=== PATIENT | female | born 1955 | race Caucasian/White ===

== ENCOUNTER 2016-04-27 11:55 | Inpatient (IN) | payer OTHER ==
[2016-04-27 15:09] VITALS: BMI 22.2
[2016-04-27] MEDS ORDERED: NICOTINE POLACRILEX 4 MG GUM BC PRN (16:24)
[2016-04-27] MEDS ORDERED: MAGNESIUM CITRATE 300 ML BOTTLE PO PRN (16:24)
[2016-04-27] MEDS ORDERED: P-EPHED 60MG/TRIPROLIDI 2.5MG TABLET PO PRN (16:24)
[2016-04-27] MEDS ORDERED: ACETAMINOPHEN 325 MG TABLET (FP) PO PRN (16:24)
[2016-04-27] MEDS ORDERED: IBUPROFEN 400 MG TABLET (FP) PO PRN (16:24)
[2016-04-27] MEDS ORDERED: guaiFENesin/D-METHORPHAN HB 10 ML UNIT-DOSE CUPS PO PRN (16:24)
[2016-04-27] MEDS ORDERED: MAGNESIUM HYDROX 2400MG/30ML ORAL SUSPENSION 30 ML CUP PO PRN (16:24)
[2016-04-27] MEDS ORDERED: MENTHOL/PHENOL 1 EACH UD MM PRN (16:24)
[2016-04-27] MEDS ORDERED: MAG HYDROX/AL HYDROX/SIMETH 30 ML UNIT-DOSE CUP PO PRN (16:24)
[2016-04-27] MEDS ORDERED: chlordiazePOXIDE HCL 25 MG CAPSULE PO PRN (16:24)
[2016-04-27] MEDS ORDERED: ALBUTEROL SO4 6.7 GM HFA INHALER IH PRN (16:27)
[2016-04-27] MEDS ORDERED: ALBUTEROL SO4 2.5/IPRATROPIUM 0.5 INH SOL 3 ML VIAL.NEB. NEB PRN (16:27)
--- NOTE | 2016-04-27 16:34 | HP ---
CIWA Score - CIWA Score Nausea/Vomitin-No Nausea/No Vomiting Muscle Tremors: 4-Moderate,w/Arms Extend Anxiety: 4-Mod. Anxious/Guarded Agitation: 4-Moderately Restless Paroxysmal Sweats: 2 Orientation: 2-Disoriented Date<2 days Tacttile Disturbances: 0-None Auditory Disturbances: 0-None Visual Disturbances: 0-None Headache: 0-None Present CIWA-Ar Total Score: 16 Admission ROS BHS - HPI Chief Complaint: withdrawal sx HISTORY OF SEIZURE FROM ALCOHOL WITHDRAWAL Allergies/Adverse Reactions: Allergies Allergy/AdvReac Type Severity Reaction Status Date / Time No Known Allergies Allergy Verified 04/27/16 16:09 History of Present Illness: 60 years old female with long history of asthma hypertension weight loss and bipolar ii IS ADMITTED TO DETOX Exam Limitations: No Limitations - Ebola screening Have you traveled outside of the country in the last 21 days: No Have you had contact with anyone from an Ebola affected area: No Have you been sick,other than usual withdrawal symptoms: No Do you have a fever: No - Review of Systems Constitutional: Chills, Loss of Appetite, Changes in sleep, Unintentional Wgt. Loss, Unexplained wgt Loss EENT: reports: Dental Problems (DENTURE UPPER LOWER MISSING), Other (EYE GLASSES) Respiratory: reports: No Symptoms reported Cardiac: reports: No Symptoms Reported GI: reports: Poor Appetite, Poor Fluid Intake, Abdominal cramping : reports: No Symptoms Reported Musculoskeletal: reports: Back Pain Integumentary: reports: No Symptoms Reported Neuro: reports: Seizure (2016), Tremors Endocrine: reports: No Symptoms Reported Hematology: reports: No Symptoms Reported Psychiatric: reports: Judgement Intact, Anxious, Depressed Other Systems: Reviewed and Negative Patient History - Patient Medical History Hx Anemia: No Hx Asthma: Yes Hx Chronic Obstructive Pulmonary Disease (COPD): Yes Hx Cancer: No Hx Cardiac Disorders: No Hx Congestive Heart Failure: No Hx Hypertension: Yes Hx Hypercholesterolemia: No Hx Pacemaker: No HX Cerebrovascular Accident: No Hx Seizures: Yes (ALCOHOL RELATED) Hx Dementia: No Hx Diabetes: No Hx Gastrointestinal Disorders: No Hx Liver Disease: No Hx Genitourinary Disorders: No Hx Sexually Transmitted Disorders: No Hx Renal Disease (ESRD): No Hx Thyroid Disease: No Hx Human Immunodeficiency Virus (HIV): No Hx Hepatitis C: Yes Hx Depression: No Hx Suicide Attempt: No Hx Bipolar Disorder: Yes Hx Schizophrenia: No - Patient Surgical History Past Surgical History: Yes Other Surgical History: VASCULAR-CEREBRAL ANEURYSM Anesthesia Reaction: No - PPD History Previous Implant?: Yes Documented Results: Negative w/o proof Implanted On Prior R Admission?: No PPD to be Administered?: Yes - Reproductive History Patient is a Female of Child Bearing Age (11 -55 yrs old): No Patient : No - Smoking Cessation Smoking history: Current every day smoker Have you smoked in the past 12 months: Yes Aproximately how many cigarettes per day: 20 Cigars Per Day: 0 Hx Chewing Tobacco Use: No Initiated information on smoking cessation: Yes 'Breaking Loose' booklet given: 04/27/16 - Substance & Tx. History Hx Alcohol Use: Yes Hx Substance Use: No Substance Use Type: Alcohol Hx Substance Use Treatment: Yes Family Disease History - Family Disease History Family Disease History: CA: Mother, Other: Father (TB ) Admission Physical Exam BHS - Vital Signs Vital Signs: Vital Signs - 24 hr 04/27/16 15:07 Temperature 97.5 F L Pulse Rate 101 H Respiratory 20 Rate Blood Pressure 110/81 - Physical General Appearance: Yes: Appropriately Dressed, Alcohol on Breath, Thin, Tremorous, Irritable, Sweating, Anxious HEENTM: Yes: Hearing grossly Normal, Normal ENT Inspection, Normocephalic, Normal Voice Respiratory: Yes: Chest Non-Tender, No Respiratory Distress, No Accessory Muscle Use, Rhonchi, Wheezing, Expiration, Hyperresonant, Inspiration Neck: Yes: Supple, Trachea in good position Breast: Yes: Breasts Symetrical Cardiology: Yes: Regular Rhythm, S1, S2, Tachycardia Abdominal: Yes: Non Tender, Soft Genitourinary: Yes: Within Normal Limits Back: Yes: Normal Inspection Musculoskeletal: Yes: full range of Motion (FREE FROM GRAVITY), Gait Steady ( CANE), Back pain Extremities: Yes: Normal Range of Motion, Non-Tender, Tremors Neurological: Yes: Alert, Normal Response, Depressed Affect Integumentary: Yes: Warm Lymphatic: Yes: Within Normal Limits - Diagnostic (1) Alcohol dependence with withdrawal delirium Current Visit: Yes Status: Acute (2) Asthma Current Visit: Yes Status: Acute Qualifiers: Asthma severity: mild intermittent Asthma complication type: with status asthmaticus Qualified Code(s): J45.22 - Mild intermittent asthma with status asthmaticus (3) COPD (chronic obstructive pulmonary disease) Current Visit: Yes Status: Acute Qualifiers: COPD type: emphysema (4) Chronic bronchitis Current Visit: Yes Status: Acute Qualifiers: Chronic bronchitis type: mixed simple and mucopurulent Qualified Code(s): J41.8 - Mixed simple and mucopurulent chronic bronchitis (5) Hepatitis C antibody test positive Current Visit: Yes Status: Chronic (6) Hypertension Current Visit: Yes Status: Acute Qualifiers: Hypertension type: essential hypertension Qualified Code(s): I10 - Essential (primary) hypertension (7) Weight loss Current Visit: Yes Status: Acute (8) Use of cane as ambulatory aid Current Visit: Yes Status: Acute (9) Nicotine dependence Current Visit: Yes Status: Acute Qualifiers: Nicotine product type: cigarettes Substance use status: in withdrawal Qualified Code(s): F17.213 - Nicotine dependence, cigarettes, with withdrawal (10) S/P cerebral aneurysm repair Current Visit: Yes Status: Resolved (11) Bipolar II disorder Current Visit: Yes Status: Suspected Cleared for Admission BHS - Detox or Rehab S Level of Care: Medically Managed Detox Regimen/Protocol: Librium BHS Breath Alcohol Content Breath Alcohol Content: 0.017 Vital Signs - Vital Signs Vital Signs Refused: No Temperature: 97.5 F Temperature Source: Oral Pulse Rate: 101 Respiratory Rate: 20 Blood Pressure: 110/81 BP Location: Left Arm Blood Pressure Position: Sitting - Height Height: 5 ft 6 in - Weight Weight: 138 lb Weight Measurement Method: Standing Scale Body Mass Index (BMI): 22.2 - Bowel Function Bowel Movement: Yes Urine Pregancy Test - Result Urine Test Results: Negative- NO Line Present Urine Drug Screen - Control Is Test Valid: Yes - Results Drug Screen Negative: Yes
[2016-04-27 20:19] LABS: URINE APPEARANCE CLOUDY; URINE BILIRUBIN NEGATIVE (NEGATIVE); URINE BLOOD NEGATIVE (NEGATIVE); URINE COLOR YELLOW; URINE GLUCOSE (UA) NEGATIVE (NEGATIVE); URINE KETONE NEGATIVE (NEGATIVE); URINE NITRITE NEGATIVE (NEGATIVE); URINE PROTEIN NEGATIVE (NEGATIVE); URINE UROBILINOGEN NEGATIVE E.U./dl (0.2-1.0)
[2016-04-27 20:25] LABS: URINE LEUK ESTERASE 3+ (NEGATIVE)
[2016-04-27 20:39] LABS: URINE HYALINE CAST 5 /lpf; URINE RBC 17 /hpf (0-3); URINE WBC 60 /hpf (3-5)
[2016-04-27] MEDS: diphenhydrAMINE HCL 50 MG CAPSULE PO PRN (22:39)
[2016-04-27] MEDS: THIAMINE HCL 100 MG TABLET (FP) PO SCH (22:39)
[2016-04-27] MEDS: cloNIDine HCL 0.1 MG TABLET PO PRN (22:39)
[2016-04-27] MEDS: chlordiazePOXIDE HCL 25 MG CAPSULE PO SCH (22:39)
[2016-04-28] MEDS: chlordiazePOXIDE HCL 25 MG CAPSULE PO SCH (06:17)
[2016-04-28] MEDS: cloNIDine HCL 0.1 MG TABLET PO PRN (06:32)
--- NOTE | 2016-04-28 09:30 | PN ---
S CIWA - CIWA Score Nausea/Vomitin-No Nausea/No Vomiting Muscle Tremors: 4-Moderate,w/Arms Extend Anxiety: 3 Agitation: 4-Moderately Restless Paroxysmal Sweats: 3 Orientation: 0-Oriented Tacttile Disturbances: 0-None Auditory Disturbances: 0-None Visual Disturbances: 0-None Headache: 1-Very Mild CIWA-Ar Total Score: 15 BHS Progress Note (SOAP) Subjective: i would like to have my detox regimen switched to valium sweats shakes interrupted sleep anxiety agitation body aches Objective: 04/28/16 09:37 Vital Signs Temperature 96.1 F L 04/28/16 06:00 Pulse Rate 82 04/28/16 06:00 Respiratory Rate 18 04/28/16 06:00 Blood Pressure 144/71 04/28/16 06:00 O2 Sat by Pulse Oximetry (%) Laboratory Tests 04/27/16 20:01 Urine Color Yellow Urine Appearance Cloudy Urine pH 5.0 Ur Specific [place] 1.009 Urine Protein Negative Urine Glucose (UA) Negative Urine Ketones Negative Urine Blood Negative Urine Nitrite Negative Urine Bilirubin Negative Urine Urobilinogen Negative Ur Leukocyte Esterase 3+ H Urine RBC 17 Urine WBC 60 Ur Epithelial Cells Moderate Hyaline Casts 5 labs pending awake/alert ambulating no acute distress Assessment: 04/28/16 09:37 withdrawal sx Plan: continue detox increase fluids librium switched to valium as per pt request labs pending
[2016-04-28] MEDS ORDERED: BUPRENORPHINE/NALOXONE 8 MG/2 MG FILM PACKET SL SCH (10:00)
[2016-04-28] MEDS: PRENATAL VITAMINS W/ FOLIC ACID TABLET (FP) PO SCH (10:19)
[2016-04-28] MEDS: cloNIDine HCL 0.1 MG TABLET PO SCH ×2 (10:21→22:39)
[2016-04-28] MEDS: diazePAM 5 MG TABLET PO PRN ×2 (10:23→15:10)
[2016-04-28 10:24] LABS: MCH 32.8 pg (25.7-33.7); MCHC 34.1 g/dl (32.0-36.0); MEAN CELL VOLUME 96.3 fl (80-96); MEAN PLT VOLUME 8.4 fl (7.5-11.1); PLATELET COUNT 337 K/MM3 (134-434); RDW 13.1 % (11.6-15.6); WHITE BLOOD COUNT 5.5 K/mm3 (4.0-10.0)
[2016-04-28] MEDS: NICOTINE 21 MG/24 HOURS TOPICAL PATCH TD SCH (10:24)
[2016-04-28 10:31] LABS: ALBUMIN 3.7 g/dl (3.4-5.0); CALCIUM 9.7 mg/dL (8.5-10.1)
[2016-04-28 10:33] LABS: BILIRUBIN,TOTAL 0.3 mg/dL (0.2-1.0); CREATININE 1.1 mg/dL (0.55-1.02); TOT PROT 7.5 g/dl (6.4-8.2)
[2016-04-28] MEDS ORDERED: BUPRENORPHINE/NALOXONE 8 MG/2 MG FILM PACKET SL ONE (10:40)
[2016-04-28] MEDS: GABAPENTIN 300 MG CAPSULE (FP) PO SCH ×2 (13:03→22:40)
[2016-04-28] MEDS: diazePAM 5 MG TABLET PO SCH ×2 (13:03→22:40)
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
[2016-04-28 14:54] LABS: HIV 1 & 2 AB NEGATIVE; HIV 1 AGp24 NEGATIVE
[2016-04-28] MEDS: hydrOXYzine PAMOATE 50 MG CAPSULE (FP) PO PRN ×2 (17:36→21:43)
--- NOTE | 2016-04-28 17:36 | PN ---
[facility] Progress Note Note: Psychiatry Attending's note : Asked to meet with patient (second encounter). Reason : change of mind.Now wants medications. As listed in Psychiatric History section.See details. Patient seen.She wants to resume : depakote ER 500 mg po hs buspar 5 mg po bid gabapentin 600 mg po tid Side effects/benefits discussed with the patient. Ms oTscano agrees with this careplan. No scripts needed at discharge. Patient states that she has adequate supply at home.
[2016-04-28] MEDS: HYDROCORTISONE 1% TOPICAL CREAM 30 GM TUBE TP PRN ×2 (17:37→22:43)
[2016-04-28] MEDS: busPIRone HCL 5 MG TABLET PO SCH (22:39)
[2016-04-28] MEDS: DIVALPROEX NA *ER* EXTEND REL 500 MG TABLET.SA (FP) PO SCH (22:39)
[2016-04-28] MEDS: diphenhydrAMINE HCL 50 MG CAPSULE PO PRN (22:39)
[2016-04-28] MEDS: THIAMINE HCL 100 MG TABLET (FP) PO SCH (22:40)
[2016-04-28] MEDS ORDERED: chlordiazePOXIDE HCL 25 MG CAPSULE PO SCH (23:00)
[2016-04-29] MEDS: diazePAM 5 MG TABLET PO PRN ×2 (00:32→17:41)
[2016-04-29] MEDS: GABAPENTIN 300 MG CAPSULE (FP) PO SCH ×3 (06:05→23:09)
[2016-04-29] MEDS ORDERED: IBUPROFEN 600 MG TABLET (FP) PO PRN (11:08)
[2016-04-29] MEDS: PRENATAL VITAMINS W/ FOLIC ACID TABLET (FP) PO SCH (11:41)
[2016-04-29] MEDS: diazePAM 5 MG TABLET PO SCH ×2 (11:42→23:09)
[2016-04-29] MEDS: busPIRone HCL 5 MG TABLET PO SCH ×2 (11:42→23:10)
[2016-04-29] MEDS: BUPRENORPHINE/NALOXONE 8 MG/2 MG FILM PACKET SL SCH (11:42)
[2016-04-29] MEDS: cloNIDine HCL 0.1 MG TABLET PO SCH ×2 (11:43→23:10)
[2016-04-29] MEDS: NICOTINE 21 MG/24 HOURS TOPICAL PATCH TD SCH (11:43)
[2016-04-29] MEDS: LIDOCAINE 5% TOPICAL PATCH TP SCH (12:44)
[2016-04-29] MEDS ORDERED: ACLIDINIUM BROMIDE 400 MCG/INH AERO.POWD IH ONE (15:00)
--- NOTE | 2016-04-29 15:04 | PN ---
S CIWA - CIWA Score Nausea/Vomitin Muscle Tremors: 3 Anxiety: 3 Agitation: 2 Paroxysmal Sweats: 2 Orientation: 0-Oriented Tacttile Disturbances: 1-Very Mild Itch/Numbness Auditory Disturbances: 1-Very Mild Visual Disturbances: 1-Very Mild Sensitivity Headache: 2-Mild CIWA-Ar Total Score: 18 BHS Progress Note (SOAP) Subjective: ALERT,IRRITABLE,ANXIOUS,INTERRUPTED SLEEP,TREMOR,PAIN IN THE BACK Objective: 04/29/16 15:02 Vital Signs Temperature 98.6 F 04/29/16 14:29 Pulse Rate 99 H 04/29/16 14:29 Respiratory Rate 18 04/29/16 14:29 Blood Pressure 130/94 04/29/16 14:29 O2 Sat by Pulse Oximetry (%) EKG NSR PROLONG QT 04/29/16 15:03 Laboratory Last Values WBC 5.5 K/mm3 (4.0-10.0) 04/28/16 06:00 RBC 3.73 M/mm3 (3.60-5.2) 04/28/16 06:00 Hgb 12.3 GM/dL (10.7-15.3) 04/28/16 06:00 Hct 35.9 % (32.4-45.2) 04/28/16 06:00 MCV 96.3 fl (80-96) H 04/28/16 06:00 MCHC 34.1 g/dl (32.0-36.0) 04/28/16 06:00 RDW 13.1 % (11.6-15.6) 04/28/16 06:00 Plt Count 337 K/MM3 (134-434) 04/28/16 06:00 MPV 8.4 fl (7.5-11.1) 04/28/16 06:00 Sodium 134 mmol/L (136-145) L 04/28/16 06:00 Potassium 4.6 mmol/L (3.5-5.1) 04/28/16 06:00 Chloride 96 mmol/L (98-107) L 04/28/16 06:00 Carbon Dioxide 29 mmol/L (21-32) 04/28/16 06:00 Anion Gap 9 (8-16) 04/28/16 06:00 BUN 16 mg/dL (7-18) 04/28/16 06:00 Creatinine 1.1 mg/dL (0.55-1.02) H 04/28/16 06:00 Creat Clearance w eGFR 50.67 (>60) 04/28/16 06:00 Random Glucose 92 mg/dL (74-106) 04/28/16 06:00 Calcium 9.7 mg/dL (8.5-10.1) 04/28/16 06:00 Total Bilirubin 0.3 mg/dL (0.2-1.0) 04/28/16 06:00 AST 23 U/L (15-37) 04/28/16 06:00 ALT 17 U/L (12-78) 04/28/16 06:00 Alkaline Phosphatase 56 U/L (45-117) 04/28/16 06:00 Total Protein 7.5 g/dl (6.4-8.2) 04/28/16 06:00 Albumin 3.7 g/dl (3.4-5.0) 04/28/16 06:00 Urine Color Yellow 04/27/16 20:01 Urine Appearance Cloudy 04/27/16 20:01 Urine pH 5.0 (5.0-8.0) 04/27/16 20:01 Ur Specific [place] 1.009 (1.001-1.035) 04/27/16 20:01 Urine Protein Negative (NEGATIVE) 04/27/16 20:01 Urine Glucose (UA) Negative (NEGATIVE) 04/27/16 20:01 Urine Ketones Negative (NEGATIVE) 04/27/16 20:01 Urine Blood Negative (NEGATIVE) 04/27/16 20:01 Urine Nitrite Negative (NEGATIVE) 04/27/16 20:01 Urine Bilirubin Negative (NEGATIVE) 04/27/16 20:01 Urine Urobilinogen Negative E.U./dl (0.2-1.0) 04/27/16 20:01 Ur Leukocyte Esterase 3+ (NEGATIVE) H 04/27/16 20:01 Urine RBC 17 /hpf (0-3) 04/27/16 20:01 Urine WBC 60 /hpf (3-5) 04/27/16 20:01 Ur Epithelial Cells Moderate /hpf (FEW) 04/27/16 20:01 Hyaline Casts 5 /lpf 04/27/16 20:01 Valproic Acid 64.803 ug/ml (50-100) 04/29/16 08:13 RPR Titer Nonreactive (NONREACTIVE) 04/28/16 06:00 HIV 1&2 Antibody Screen Negative 04/28/16 13:00 HIV P24 Antigen Negative 04/28/16 13:00 Assessment: 04/29/16 15:03 WITHDRAWAL SYMPTOM Plan: CONTINUE DETOX,REPEAT UA
[2016-04-29] MEDS: HYDROCORTISONE 1% TOPICAL CREAM 30 GM TUBE TP PRN (18:28)
[2016-04-29] MEDS ORDERED: chlordiazePOXIDE 5 MG CAPSULE PO SCH (23:00)
[2016-04-29] MEDS: THIAMINE HCL 100 MG TABLET (FP) PO SCH (23:10)
[2016-04-29] MEDS: DIVALPROEX NA *ER* EXTEND REL 500 MG TABLET.SA (FP) PO SCH (23:11)
[2016-04-29] MEDS: ZOLPIDEM TARTRATE 5 MG TABLET PO PRN (23:14)
[2016-04-29] MEDS: ACLIDINIUM BROMIDE 400 MCG/INH AERO.POWD IH SCH (23:15)
[2016-04-30] MEDS: diazePAM 5 MG TABLET PO PRN ×3 (00:56→13:49)
[2016-04-30] MEDS: GABAPENTIN 300 MG CAPSULE (FP) PO SCH ×3 (06:12→22:55)
[2016-04-30] MEDS: cloNIDine HCL 0.1 MG TABLET PO SCH ×2 (10:56→22:56)
[2016-04-30] MEDS: busPIRone HCL 5 MG TABLET PO SCH ×2 (10:57→22:56)
[2016-04-30] MEDS: ACLIDINIUM BROMIDE 400 MCG/INH AERO.POWD IH SCH ×2 (10:57→22:56)
[2016-04-30] MEDS: PRENATAL VITAMINS W/ FOLIC ACID TABLET (FP) PO SCH (10:57)
[2016-04-30] MEDS: BUPRENORPHINE/NALOXONE 8 MG/2 MG FILM PACKET SL SCH (10:58)
[2016-04-30] MEDS: diazePAM 5 MG TABLET PO SCH ×2 (10:58→22:55)
[2016-04-30] MEDS: NICOTINE 21 MG/24 HOURS TOPICAL PATCH TD SCH (10:59)
[2016-04-30] MEDS: LIDOCAINE 5% TOPICAL PATCH TP SCH (11:00)
[2016-04-30] MEDS ORDERED: TRIMETHOBENZAMIDE HCL 200MG/2ML INJ IM PRN (11:07)
--- NOTE | 2016-04-30 13:22 | PN ---
S Progress Note (SOAP) Subjective: ALERT,IRRITABLE,ANXIOUS,INTERRUPTED SLEEP,VOMITING Objective: 04/30/16 13:20 Vital Signs Temperature 97.9 F 04/30/16 10:06 Pulse Rate 105 H 04/30/16 10:06 Respiratory Rate 18 04/30/16 10:06 Blood Pressure 168/102 04/30/16 10:06 O2 Sat by Pulse Oximetry (%) Assessment: 04/30/16 13:20 WITHDRAWAL SYMPTOM Plan: CONTINUE DETOX,TIGAN 200 MMGS IM Q8H PRN FOR VOMITING
[2016-04-30] MEDS: LOPERAMIDE HCL 2 MG CAPSULE PO PRN ×2 (15:03→23:00)
[2016-04-30] MEDS: HYDROCORTISONE 1% TOPICAL CREAM 30 GM TUBE TP PRN (15:18)
[2016-04-30] MEDS: ZOLPIDEM TARTRATE 5 MG TABLET PO PRN (22:56)
[2016-04-30] MEDS: DIVALPROEX NA *ER* EXTEND REL 500 MG TABLET.SA (FP) PO SCH (22:56)
[2016-04-30] MEDS: THIAMINE HCL 100 MG TABLET (FP) PO SCH (22:56)
[2016-04-30] MEDS ORDERED: chlordiazePOXIDE HCL 10 MG CAPSULE PO SCH (23:00)
[2016-05-01] MEDS ORDERED: cloNIDine HCL 0.1 MG TABLET PO ONE ×2 (00:22→10:08)
--- NOTE | 2016-05-01 00:26 | PN ---
S Progress Note Note: Vital Signs 04/30/16 04/30/16 18:56 23:14 Temperature 98.1 F 98.1 F Pulse Rate 100 H 98 H Respiratory 20 20 Rate Blood Pressure 159/97 178/101 PT'S BP IS ELEVATED. CLONIDINE 0.2MG PO ONCE ORDERED. WILL CONTINUE TO MONITOR.
[2016-05-01] MEDS: GABAPENTIN 300 MG CAPSULE (FP) PO SCH (05:45)
--- NOTE | 2016-05-01 09:05 | DS ---
[facility] Detox Discharge Summary Admission Date: 04/27/16 Discharge Date: 05/01/16 - History Present History: Alcohol Dependence - Physical Exam Results Vital Signs: Vital Signs Temperature 97.7 F 05/01/16 06:00 Pulse Rate 92 H 05/01/16 06:00 Respiratory Rate 18 05/01/16 06:00 Blood Pressure 133/76 05/01/16 06:00 O2 Sat by Pulse Oximetry (%) - Treatment Hospital Course: Detox Protocol Followed, Detoxed Safely, Responded well, Discharged Condition Good, Rehab Referral Accepted - Medication Discharge Medications: Ambulatory Orders Albuterol Sulfate Inhaler - [Ventolin Hfa Inhaler -] 2 inh PO Q4H PRN 04/27/16 Buprenorphine/Naloxone [Suboxone 8Mg/2Mg Sl Film -] 1 each SL DAILY 04/27/16 Buspirone HCl [Buspar -] 5 mg PO BID 04/27/16 Clonidine HCl [Catapres -] 0.3 mg PO TID 04/27/16 Gabapentin [Neurontin] 600 mg PO TID 04/27/16 - Diagnosis (1) Alcohol dependence with withdrawal delirium Current Visit: Yes Status: Chronic (2) Insomnia Current Visit: Yes Status: Chronic (3) Nicotine dependence Current Visit: Yes Status: Chronic Qualifiers: Nicotine product type: cigarettes Substance use status: uncomplicated Qualified Code(s): F17.210 - Nicotine dependence, cigarettes, uncomplicated (4) Post traumatic stress disorder (PTSD) Current Visit: Yes Status: Acute (5) Asthma Current Visit: Yes Status: Chronic Qualifiers: Asthma severity: mild intermittent Asthma complication type: with status asthmaticus Qualified Code(s): J45.22 - Mild intermittent asthma with status asthmaticus (6) COPD (chronic obstructive pulmonary disease) Current Visit: Yes Status: Chronic Qualifiers: COPD type: emphysema (7) Chronic bronchitis Current Visit: Yes Status: Chronic Qualifiers: Chronic bronchitis type: mixed simple and mucopurulent Qualified Code(s): J41.8 - Mixed simple and mucopurulent chronic bronchitis (8) Hepatitis C antibody test positive Current Visit: Yes Status: Chronic (9) Hypertension Current Visit: Yes Status: Chronic Qualifiers: Hypertension type: essential hypertension Qualified Code(s): I10 - Essential (primary) hypertension (10) Use of cane as ambulatory aid Current Visit: Yes Status: Chronic (11) Weight loss Current Visit: Yes Status: Chronic (12) Bipolar II disorder Current Visit: Yes Status: Suspected (13) S/P cerebral aneurysm repair Current Visit: Yes Status: Resolved - AMA Did Patient Leave Against Medical Advice: No
[2016-05-01] MEDS ORDERED: diazePAM 5 MG TABLET PO SCH (10:00)
[2016-05-01] MEDS: ACLIDINIUM BROMIDE 400 MCG/INH AERO.POWD IH SCH (10:14)
[2016-05-01] MEDS: BUPRENORPHINE/NALOXONE 8 MG/2 MG FILM PACKET SL SCH (10:15)
[2016-05-01] MEDS: PRENATAL VITAMINS W/ FOLIC ACID TABLET (FP) PO SCH (10:16)
[2016-05-01] MEDS: busPIRone HCL 5 MG TABLET PO SCH (10:16)
[2016-05-01] MEDS: LIDOCAINE 5% TOPICAL PATCH TP SCH (10:21)
[2016-05-01] MEDS: NICOTINE 21 MG/24 HOURS TOPICAL PATCH TD SCH (10:21)
[2016-05-01 10:30] VITALS: BP 140/85; PULSE 116; TEMP 97
[2016-05-01] MEDS: cloNIDine HCL 0.1 MG TABLET PO SCH (11:18)
[2016-05-01] MEDS ORDERED: cloNIDine HCL 0.1 MG TABLET PO SCH (14:00)
--- NOTE | 2016-05-02 17:00 | EKG ---
Test Reason : Blood Pressure : / mmHG Vent. Rate : 071 BPM Atrial Rate : 071 BPM P-R Int : 152 ms QRS Dur : 100 ms QT Int : 442 ms P-R-T Axes : 077 071 070 degrees QTc Int : 480 ms NORMAL SINUS RHYTHM POSSIBLE LEFT ATRIAL ENLARGEMENT LEFT VENTRICULAR HYPERTROPHY PROLONGED QT ABNORMAL ECG NO PREVIOUS ECGS AVAILABLE Confirmed by AMRIT WHARTON, ALEXANDRE ([id number]) on 05/02/2016 4:59:34 PM Referred By: Jesus Shaver Confirmed By:ALEXANDRE MARCUS MD
== END 2016-05-01 11:59 | disposition home or self-care (01) | DRG 775 ==
LOC: YASAS 11:55 → Y6N 17:49
PROVIDERS: ADMIT Internal Medicine Addiction Medicine; ATTEND Internal Medicine Addiction Medicine
PROC: HZ2ZZZZ Detoxification Services for Substance Abuse Treatment (ICD-10-PCS; principal; 2016-05-01)
DX: F10.230 Alcohol dependence with withdrawal, uncomplicated (principal); F17.210 Nicotine dependence, cigarettes, uncomplicated; F31.81 Bipolar II disorder; F43.10 Post-traumatic stress disorder, unspecified; G47.00 Insomnia, unspecified; I10 Essential (primary) hypertension; J44.9 Chronic obstructive pulmonary disease, unspecified; J41.8 Mixed simple and mucopurulent chronic bronchitis; B18.2 Chronic viral hepatitis C; R63.4 Abnormal weight loss; Z68.22 Body mass index [BMI] 22.0-22.9, adult; R26.2 Difficulty in walking, not elsewhere classified; Z98.890 Other specified postprocedural states; Z86.79 Personal history of other diseases of the circulatory system
CPT/HCPCS: 36415; 80053; 80164; 81003; 81015; 85027; 86593; 87389; 93005; 93010